=== PATIENT | male | born 1955 | race Caucasian/White ===

== ENCOUNTER → 2018-08-07 | Outpatient (CLI) | payer OTHER ==
[~2018-08-07] MED LIST: OMNIPAQUE 350 MG/ML, 100ML BOTTLE ONE
== END | disposition home or self-care (01) ==
LOC: CFH 08:27
PROVIDERS: ATTEND Nurse Practitioner Primary Care
DX: R10.9 Unspecified abdominal pain (principal); N13.30 Unspecified hydronephrosis; M51.37 Other intervertebral disc degeneration, lumbosacral region
CPT/HCPCS: 74177; Q9967

== ENCOUNTER → 2018-09-13 | Outpatient (CLI) | payer OTHER ==
[~2018-09-13] MED LIST changes: -OMNIPAQUE 350 MG/ML, 100ML BOTTLE ONE; +OMNIPAQUE 350 MG/ML, 150 ML BOTTLE ONE
== END | disposition home or self-care (01) ==
LOC: CFH 12:22
PROVIDERS: ATTEND Student in an Organized Health Care Education/Training Program
DX: N28.1 Cyst of kidney, acquired (principal); N28.9 Disorder of kidney and ureter, unspecified; K57.30 Diverticulosis of large intestine without perforation or abscess without bleeding; N40.0 Benign prostatic hyperplasia without lower urinary tract symptoms
CPT/HCPCS: 74178; 82565; Q9967